=== PATIENT | female | born 1950 | race Two or more races ===

== ENCOUNTER 2017-05-04 13:34 | Outpatient (CLI) | payer OTHER | END 2017-05-04 13:46 | disposition home or self-care (01) | LOC: NUCLEAR 13:34 | DX: M85.80 Other specified disorders of bone density and structure, unspecified site (principal); M81.0 Age-related osteoporosis without current pathological fracture ==

== ENCOUNTER → 2018-05-15 | Outpatient (CLI) | payer OTHER | END | disposition home or self-care (01) | LOC: MAMO-SONO 13:45 | DX: Z12.31 Encounter for screening mammogram for malignant neoplasm of breast (principal); Z87.898 Personal history of other specified conditions; N64.89 Other specified disorders of breast ==

== ENCOUNTER 2020-05-15 11:18 | Outpatient (CLI) | payer OTHER | END 2020-05-15 11:26 | disposition home or self-care (01) | LOC: MAMO-SONO 11:18 | PROVIDERS: ATTEND Obstetrics & Gynecology | DX: Z12.31 Encounter for screening mammogram for malignant neoplasm of breast (principal); N64.59 Other signs and symptoms in breast; N60.11 Diffuse cystic mastopathy of right breast; N60.12 Diffuse cystic mastopathy of left breast ==

== ENCOUNTER 2022-07-28 10:45 | Outpatient (CLI) | payer OTHER | END 2022-07-28 10:57 | disposition home or self-care (01) | LOC: SONOGRAMA 10:45 | DX: E84.9 Cystic fibrosis, unspecified (principal); N60.19 Diffuse cystic mastopathy of unspecified breast ==

== ENCOUNTER → 2022-10-27 | Outpatient (CLI) | payer OTHER | END | disposition home or self-care (01) | LOC: MAMO-SONO 10:31 | DX: Z12.31 Encounter for screening mammogram for malignant neoplasm of breast (principal) ==

== ENCOUNTER 2024-01-12 10:31 | Outpatient (CLI) | payer OTHER | END 2024-01-12 10:38 | disposition home or self-care (01) | LOC: RAD 10:31 | PROVIDERS: ATTEND Physical Medicine & Rehabilitation | DX: M54.59 Other low back pain (principal); M25.552 Pain in left hip ==